=== PATIENT | female | born 1995 | race Caucasian/White ===

== ENCOUNTER 2019-12-03 09:16 | Outpatient (CLI) | payer BC, OTHER ==
[2019-12-04 12:19] LABS: SARS-CoV-2 MS2 Positive; SARS-CoV-2 N Gene Negative; SARS-CoV-2 S Gene Negative; SARS-CoV-2 orf1ab Negative
== END 2019-12-03 09:17 | disposition home or self-care (01) ==
LOC: SCSLAB 09:16
PROVIDERS: ATTEND Obstetrics & Gynecology
DX: Z01.812 Encounter for preprocedural laboratory examination (principal); Z11.59 Encounter for screening for other viral diseases
CPT/HCPCS: 87635; U0003

== ENCOUNTER 2019-12-05 19:15 | Inpatient (IN) | payer BC, OTHER ==
--- NOTE | 2019-12-05 16:38 | PDOC.LDHP ---
Labor and Delivery H&P Current gestational age (weeks): 39 (6 day) Grav: 2 Para: 1 OB History Details: 2015 8lb 14oz at term Current complications: other (microcephaly - MFM detrmined normal genetic variant.) Abnormal US findings: Yes (microcephaly) Current medications: pre-megan vitamins Previous surgical history: none Allergies/Adverse Reactions: Allergies Allergy/AdvReac Type Severity Reaction Status Date / Time No Known Allergies Allergy Verified 12/05/19 22:26 Social history: none - Physical Exam General: NAD Lungs: nonlabored breathing Abdomen: gravid FHT: category 1 - Vaginal Exam cm dilated: 2 Effacement: 50% Station: -3 - OB Labs Blood type: O RH: positive Antibody Screen: negative HIV: negative RPR: negative HEPSAg: negative 1 hour GCT: negative GBS: positive Urine drug screen: negative Rubella: immune - Assessment L&D Assessment: elective induction at term - Plan Plan: admit to L&D, cervical ripening, GBS antibiotic prophylaxis, informed consent obtained, anesthesia consult for pain management
[~2019-12-05 19:15] MED LIST: Butorphanol Tartrate 1 MG/ML VIAL SLOW IVP PRN; HYDROcodone/Acetaminophen 5/325 mg Tablet PO PRN; Ibuprofen 800 MG TAB PO PRN; Lidocaine 1% (PF) 30 ML VIAL SC PRN; Misoprostol 200 MCG TAB PR PRN; NS / Oxytocin 40 units/1000ml 1,000 ML IV PRN; Ondansetron PF 4 MG/2 ML Vial IVP PRN; Promethazine HCl 25 MG/ML VIAL IM PRN; hydrALAZINE 20 MG/ML VIAL SLOW IVP PRN
[2019-12-05] MEDS ORDERED: NS w/ Oxytocin 10 units 500 ML IV SCH (21:00)
[2019-12-05] MEDS ORDERED: Penicillin G Potassium 5 MILL.UNITS in Sodium Chloride 0.9% 100 ML IVPB SCH (21:00)
[2019-12-05 22:37] VITALS: BMI 37.8
[2019-12-05] MEDS: Lactated Ringer's 1,000 ML IV SCH (23:18)
[2019-12-05] MEDS: Misoprostol 100 MCG TAB VAG SCH (23:19)
[2019-12-05 23:29] LABS: Hemoglobin 11.9 g/dL (12.0-16.0); Mean Corpuscular HGB CONC 35.3 g/dL (32.0-36.0); Mean Corpuscular Hemoglobin 30.9 pg (27.0-31.0); Mean Corpuscular Volume 87.6 fL (78.0-98.0); Mean Platelet Volume 7.7 fL (7.4-10.4); Platelet Count 233 thou/uL (130-400); RBC Distribution Width 13.7 % (11.5-14.5); Red Blood Cell (RBC) Count 3.84 mill/uL (4.20-5.40); White Blood Cell (WBC) Count 9.1 thou/uL (4.8-10.8)
[2019-12-06 00:10] LABS: HBSAg Index 0.14 S/CO (0-0.99); Hep B Surf Ag Non-Reactive S/CO (NonReactive); Syphilis Antibody Nonreactive (Nonreactive); Syphilis Antibody Index 0.07 S/CO (<1.00 Non-Reactive)
[2019-12-06] MEDS: Misoprostol 100 MCG TAB VAG SCH ×4 (01:24→19:39)
[2019-12-06] MEDS: Pen G 2.5 MILL.UNITS/50 ML BAG IVPB SCH ×5 (03:22→19:40)
[2019-12-06] MEDS: Lactated Ringer's 1,000 ML IV SCH ×2 (05:47→19:39)
[2019-12-06] MEDS ORDERED: Fentanyl 4 mcg/Bup 0.1% Cadd 100 ML ONE ×2 (06:19→12:48)
[2019-12-06] MEDS ORDERED: Ondansetron PF 4 MG/2 ML Vial IVP PRN ×2 (06:52→20:13)
[2019-12-06] MEDS ORDERED: Lactated Ringer's 500 ML IV PRN (06:52)
[2019-12-06] MEDS ORDERED: diphenhydrAMINE 50 MG/ML VIAL IVP PRN (06:52)
[2019-12-06] MEDS ORDERED: Naloxone HCl 0.4 mg/ml Vial IVP PRN ×2 (06:52)
[2019-12-06] MEDS ORDERED: Promethazine HCl 25 MG/ML VIAL IM PRN (06:52)
[2019-12-06] MEDS ORDERED: EPHEDRINE 25 MG/5 ML SYRINGE SLOW IVP PRN (06:52)
[2019-12-06] MEDS ORDERED: Acetaminophen 325 MG TAB PO PRN (06:52)
[2019-12-06] MEDS ORDERED: Fentanyl 4 mcg/Bupivacaine 0.1% Cassette 100 ML EPIDURAL SCH (07:00)
[2019-12-06] MEDS ORDERED: Communication Order-Pharmacy FS SCH (07:00)
--- NOTE | 2019-12-06 12:15 | PDOC.LDPN ---
Labor & Delivery Progress Note - Subjective Subjective: painful contractions - Objective Vital signs reviewed and normal: yes General: breathing through contractions Uterine fundus: non tender Dilation: 4 Effacement: 75% Station: -2 FHT: category 1 [place] contractions every: q2 AROM: bloody fluid IUPC placed: yes FSE placed: yes - Assessment (1) Elective induction of labor planned Code(s): OHD3203 - Current Visit: Yes Status: Acute (2) 40 weeks gestation of Code(s): Z3A.40 - 40 WEEKS GESTATION OF Current Visit: Yes Status : Acute (3) Bloodstained amniotic fluid Current Visit: Yes Status: Acute Plan: continue plan of care -: Discontinue Pitocin. Internals placed OB Hospitalist to bedside to evaluate bleeding and co manage .
[2019-12-06] MEDS ORDERED: Fentanyl 100 MCG/2 ML VIAL ONE (13:17)
[2019-12-06] MEDS ORDERED: EPHEDRINE 25 MG/5 ML SYRINGE ONE (13:47)
[2019-12-06] MEDS ORDERED: Ondansetron PF 4 MG/2 ML Vial ONE (13:47)
[2019-12-06] MEDS ORDERED: Oxytocin 10 UNITS/ML VIAL ONE (13:47)
[2019-12-06] MEDS ORDERED: PHENYLEPHRINE-NS 100 MCG/ML 10 ML SYRINGE ONE (13:47)
[2019-12-06] MEDS ORDERED: Lidocaine 2% MPF 10 ML AMP (For Epidural Use) ONE (13:48)
[2019-12-06] MEDS ORDERED: Azithromycin 500 MG VIAL ONE (13:48)
[2019-12-06] MEDS ORDERED: Misoprostol 200 MCG TAB ONE (14:03)
[2019-12-06] MEDS ORDERED: Methylergonovine 0.2 MG/ML VIAL ONE (14:03)
[2019-12-06 14:11] LABS: Actual Bicarbonate (HCO3a) 24.6 mEq/L (22-28); Base Excess (BEa) -6.4 mEq/L (-2.0 to +3.0)
[2019-12-06 14:13] LABS: Actual Bicarbonate (HCO3v) 20 mEq/L (22-28); Base Excess -7.3 mEq/L (-2.0 to +3.0); pH (Cord, venous) 7.26 (7.32-7.43)
--- NOTE | 2019-12-06 20:10 | PDOC.OPDEL ---
OB Operative/Delivery Note Delivery Dr/Surgeon: Jose Antonio Assist: Jim Pre-Delivery Diagnosis: active labor, elective induction, non-reassuring tracing Procedure/Post Delivery Dx: spontaneous vaginal delivery Weeks gestation: 40 Anesthesia: epidural - Findings A Sex: female - Additional Findings/Plan Placenta delivered: spontaneous Repaired Obstetrical Laceration: 1st degree (reparied with Vicryl) Compilations/Other Findings: At 11:48. pt started bleeding and was evaluated by myself, RN, and OB hospitalist. Cat 1 strip. Approximately 1400, deep variable decels Patient was having epidural replaced A delivery was called and oB hospitalist notified. PT cervix was checked and noted to be complete. Immediate maternal effort pushing commenced. OB hospitalist arrived to room and evaluated PT for Vacuum assisted operative delivery. EFW 7.5, no GDM. VERTEX +2 station. Maternal efforts were sufficient. FHTs to 150s with moderate variability in between contractions. Modified Ritken used to assist and expedite delivery. double cut and clamped and handed to awaiting quang team. Cord gas obtained (7.113). Suspected partial abruption. Placenta sent to pathology. Nuchal cord x 1 1 degree repaired. Post delivery plan: routine recovery
[2019-12-06] MEDS ORDERED: Adacel (T-DAP) 0.5 ML SYRINGE IM ONE (20:13)
[2019-12-06] MEDS ORDERED: Milk Of Magnesia 30 ML UDCUP PO PRN (20:13)
[2019-12-06] MEDS ORDERED: HYDROcodone/Acetaminophen 5/325 mg Tablet PO PRN ×2 (20:13)
[2019-12-06] MEDS ORDERED: Lanolin Ointment 7 GM TUBE TOP PRN (20:13)
[2019-12-06] MEDS ORDERED: Methylergonovine 0.2 MG/ML VIAL IM PRN (20:13)
[2019-12-06] MEDS ORDERED: Bisacodyl 10 MG SUPP PR PRN (20:13)
[2019-12-06] MEDS ORDERED: Benzocaine-Menthol 82.5 ML CAN TOP PRN (20:13)
[2019-12-06] MEDS ORDERED: hydrALAZINE 20 MG/ML VIAL SLOW IVP PRN (20:13)
[2019-12-06] MEDS ORDERED: NS / Oxytocin 40 units/1000ml 1,000 ML IV SCH (20:15)
[2019-12-06] MEDS: Ibuprofen 800 MG TAB PO SCH (20:35)
[2019-12-06] MEDS: Docusate Calcium (SURFAK) 240 MG CAP PO SCH (21:26)
[2019-12-07] MEDS: Ibuprofen 800 MG TAB PO SCH ×2 (05:48→14:21)
[2019-12-07 06:03] LABS: Hemoglobin 10.4 g/dL (12.0-16.0)
[2019-12-07] MEDS ORDERED: Ferrous Sulfate 325 MG TAB PO SCH (08:00)
[2019-12-07] MEDS ORDERED: Prenatal Vitamin 1 TAB PO SCH (09:00)
--- NOTE | 2019-12-07 09:26 | PDOC.PP ---
Post Progress Note Post Day #: 1 Subjective: doing well, mom request DC today, no concerns PO intake tolerated: yes Flatus: yes Ambulation: yes Vital Signs (12 hours) Temp Pulse Resp BP Pulse Ox 12/07/19 08:05 98.1 F 88 20 103/69 99 12/07/19 03:54 98.7 F 83 16 92/55 L 12/07/19 00:00 98.3 F 82 16 115/66 Weight Weight 249 lb - Physical Examination General: NAD Respiratory: non-labored breathing Neurological: no gross focal deficits Psychiatric: A&Ox3, normal affect Result Diagrams: 12/07/19 05:39 Additional Labs: Post Labs Blood Type O POSITIVE 12/05/19 23:08 Hep Bs Antigen Non-Reactive S/CO (NonReactive) 12/05/19 23:08 (1) Vacuum-assisted vaginal delivery Code(s): Z37.9 - OUTCOME OF DELIVERY, UNSPECIFIED Status: Acute (2) 40 weeks gestation of Code(s): Z3A.40 - 40 WEEKS GESTATION OF Status: Acute (3) Normal vaginal delivery Code(s): O80 - ENCOUNTER FOR FULL-TERM UNCOMPLICATED DELIVERY Status: Acute - Assessment/Plan PPD1 doing well, plans for DC today if baby DC.
[2019-12-07] MEDS: Docusate Calcium (SURFAK) 240 MG CAP PO SCH (09:39)
[2019-12-07 11:40] VITALS: BP 111/60; TEMP 97.8
== END 2019-12-07 16:15 | disposition home or self-care (01) | DRG 805 ==
LOC: L&D 20:52 → 3SE 12-06 20:44
PROVIDERS: ADMIT Obstetrics & Gynecology; ATTEND Obstetrics & Gynecology
PROC: 10D07Z6 Extraction of Products of Conception, Vacuum, Via Natural or Artificial Opening (ICD-10-PCS; principal; 2019-12-06)
PROC: 0HQ9XZZ Repair Perineum Skin, External Approach (ICD-10-PCS; 2019-12-06)
PROC: 10907ZC Drainage of Amniotic Fluid, Therapeutic from Products of Conception, Via Natural or Artificial Opening (ICD-10-PCS; 2019-12-06)
PROC: 3E033VJ Introduction of Other Hormone into Peripheral Vein, Percutaneous Approach (ICD-10-PCS; 2019-12-06)
DX: O66.3 Obstructed labor due to other abnormalities of fetus (principal); O45.93 Premature separation of placenta, unspecified, third trimester; Z37.0 Single live birth; O99.824 Streptococcus B carrier state complicating childbirth; Q02 Microcephaly; Z3A.39 39 weeks gestation of pregnancy; O69.81X0 Labor and delivery complicated by cord around neck, without compression, not applicable or unspecified; O70.0 First degree perineal laceration during delivery; O76 Abnormality in fetal heart rate and rhythm complicating labor and delivery
CPT/HCPCS: 36415; 82805; 85014; 85018; 85027; 86780; 86850; 86900; 86901; 87340; 87635; J0456; J0690; J2001; J2210; J2405; J2540; J2590; J3010; J3490; U0003